=== PATIENT | female | born 1960 | race Caucasian/White ===

== ENCOUNTER 2017-01-23 18:14 | Emergency (ER) | payer OTHER ==
[~2017-01-23 18:14] MED LIST: NAPROSYN500 MG PO; PEN-VEE K,VEET500 MG PO; ROXICODONE5 MG PO; SKELAXIN800 MG PO; TRAMADOL HCL50 MG PO; ULTRAM50 MG PO
== END 2017-01-23 18:31 | disposition left against medical advice (07) ==
LOC: EME 18:14
DX: R06.02 Shortness of breath (principal); R07.89 Other chest pain; N23 Unspecified renal colic; Z53.21 Procedure and treatment not carried out due to patient leaving prior to being seen by health care provider